=== PATIENT | male | born 1940 | race Caucasian/White ===

== ENCOUNTER → 2016-03-24 | Outpatient (CLI) | payer MEDICARE, OTHER ==
[~2016-03-24] MED LIST: CALCIUM 500 MG1 EACH PO; CO Q-10100 MG PO; DIGESTIVE EN1 TABLET PO; MULTIVITAMIN1 EAC2 PO; NO HOME MEDS; NORCO 5/3251 TABLET PO; PROSTATE HEALT1 EAC1 PO; VITAMIN D31000 UNIT PO; ZINC30 M1 PO
== END | disposition home or self-care (01) ==
LOC: CDC 10:09
DX: I45.10 Unspecified right bundle-branch block (principal); I44.4 Left anterior fascicular block
CPT/HCPCS: 93000